=== PATIENT | male | born 1990 | race Caucasian/White ===

== ENCOUNTER 2023-06-08 01:01 | Emergency (ER) | payer SELFPAY ==
[2023-06-08 01:04] VITALS: BP 141/87; PULSE 68; RESP 18; TEMP 36.4; O2SAT 98; BMI 24.7
--- NOTE | 2023-06-08 02:08 | RAD_ITS ---
STUDY: X-RAY CHEST REASON FOR EXAM: Male, 32 years old. Stroke TECHNIQUE: Single AP portable view of the chest. COMPARISON: None. FINDINGS: The lungs are clear and expanded. There is no demonstrated pleural abnormality. Normal size heart. Normal mediastinum and nedra. Normal visualized pulmonary arteries. Normal visualized aortic arch and descending thoracic aorta. Normal visualized thoracic spine. Normal visualized ribs, clavicles, and shoulders. There is no demonstrated abnormality of the visualized soft tissue structures of the upper abdomen. RAD/Chest 1 View (Portable) IMPRESSION: No demonstrated acute cardiopulmonary process. Electronically Signed: Sheila Gonzalez MD at 2:54 EST ,
[2023-06-08 02:11] LABS: Absolute Lymphocyte Count 1.64 X10^3/uL (0.83-4.51); Absolute Neutrophil Count 3.3 X10^3/uL (2.0-7.7); Basophil# 0.04 X10^3/uL; Basophil% 0.7 % (0-1); Eosinophil# 0.19 X10^3/uL; Eosinophils% 3.4 % (0-5); Hematocrit 43.4 % (40-54); Hemoglobin 14.3 g/dL (13.0-16.5); Lymphocyte # 1.64 X10^3/ul (0.83-4.51); Lymphocyte % 29.1 % (19-41); Mean Corp Hgb Conc 32.9 g/dL (32-36); Mean Corpuscular Hgb 27.1 pg (27.0-32.0); Mean Corpuscular Volume 82.2 fL (80-94); Mean Platelet Vol. 9.1 fl (6.2-12.0); Monocyte# 0.44 X10^3/uL; Monocyte% 7.8 % (0-10); NRBC Flagged by Analyzer 0 % (0-5); Neutrophil # 3.31 X10^3/uL (2.7-7.7); Neutrophil % 58.8 % (47-70); Platelet Count 236 K/mm3 (150-450); RBC Distribution Width CV 13.3 % (11.6-14.6); RBC Distribution Width SD 39.6 fl (35.1-43.9); Red Blood Count 5.28 M/mm3 (4.6-6.2); White Blood Count 5.6 K/mm3 (4.4-11.0)
[2023-06-08 02:14] VITALS: BP 123/74; PULSE 62; RESP 17; O2SAT 98
[2023-06-08 02:20] LABS: Partial Thromboplast Time 27.5 Seconds (24.1-36.2)
[2023-06-08 02:24] LABS: Anion Gap 5 (5-15); BUN 11 mg/dL (7-18); BUN/Creat Ratio 11.6 RATIO (10-20); Calcium,Total 8.7 mg/dL (8.5-10.1); Chloride 106 mmol/L (98-107); Creatinine, Serum 0.95 mg/dL (0.70-1.30); EST Glomerular Filtration Rate 97 mL/min (>60); Est Glom Filt Rate - Afr Amer 117 mL/min (>60); Estimated Creatinine Clearance 132.19 ml/min; Glucose 88 mg/dL (74-106); Potassium 3.1 mmol/L (3.5-5.1); Sodium Level 141 mmol/L (136-145)
[2023-06-08 02:26] LABS: International Normalized Ratio 1.3; Prothrombin Time (Protime)PT. 16.1 SECONDS (11.7-14.9)
--- NOTE | 2023-06-08 02:28 | EDS_ITS ---
HPI History of Present Illness Chief Complaint: Dizziness Narrative Narrative: 32-year-old male presenting for evaluation of dizziness. He states it was vertiginous in nature. It started prior to coming. He started to hyperventilate and felt like he was numb around his mouth. He was nauseous. He denies any chest pain but he did state he was very anxious. He is not short of breath. No fevers or chills. Patient states he has a history of heart disease and had a heart attack previously. Patient states that when they did a cardiac catheterization this was ultimately negative. They did not determine what the source of the elevated heart enzymes were however the patient states he was in assisted at that time and had a lot of anxiety. [facility] Medical History Heart attack Inguinal hernia Home Medications NK 06/08/23 [History Last Taken Unknown] Allergy/AdvReac Type Severity Reaction Status Date / Time No Known Allergies Allergy Verified 06/08/23 01:03 Surgical History Hx of cardiac catheterization Social History Smoking Status: Current every day smoker tobacco type: e-cigarettes ROS ROS ED ROS Narrative Vertiginous dizziness Constitutional Constitutional ED: Denies chills, fever(s) or sweats Eyes Eyes: Denies blurry vision or change in vision ENT ENT ED: Denies ear pain or sore throat Cardiovascular Cardiovascular: Reports palpitations; Denies chest pain or racing heartbeat Respiratory/Chest Respiratory/Chest: Denies cough, dyspnea or sputum Gastrointestinal Gastrointestinal: Denies abdominal pain, constipation, diarrhea, nausea or vomiting Genitourinary Genitourinary ED: Denies dysuria, hematuria or urinary frequency Musculoskeletal Musculoskeletal: Denies arthralgias, myalgias or neck pain Integumentary Denies abscess, Abrasions or rash Neurologic Neurologic: Denies headache(s), paresthesias or weakness Psychiatric Psychiatric: Reports anxiety; Denies depression, suicidal ideation or suicidal thoughts Endocrine Endocrinology: Denies polydipsia or polyuria EXAM Physical Exam Const Vital Signs: 06/08/23 01:04 06/08/23 01:11 06/08/23 02:14 Temperature 97.6 F L Temperature Source Temporal Pulse Rate 68 Respiratory Rate 18 Respiratory Effort Normal Non-Labored Respiratory Pattern Normal Blood Pressure 141/87 H Blood Pressure Mean 105 Pulse Ox 98 Oxygen Delivery Method Room Air Room Air 06/08/23 02:14 06/08/23 02:30 06/08/23 03:00 Temperature Temperature Source Pulse Rate 62 60 60 Respiratory Rate 17 15 15 Respiratory Effort Respiratory Pattern Blood Pressure 123/74 H 111/70 Blood Pressure Mean 90 83 Pulse Ox 98 98 97 Oxygen Delivery Method Room Air Room Air Room Air 06/08/23 03:00 Temperature Temperature Source Pulse Rate 60 Respiratory Rate 15 Respiratory Effort Respiratory Pattern Blood Pressure 111/70 Blood Pressure Mean 83 Pulse Ox 97 Oxygen Delivery Method Room Air Positive well nourished General Appearance ED: NAD HEENT Reports moist mucous membranes Eyes PERRL and EOMs intact bilaterally Neck no lymphadenopathy Chest Wall inspection of chest normal Resp normal respiratory effort and clear to auscultation bilaterally Auscultation: Negative for rales, rhonchi or wheezes Cardio regular rate and regular rhythm Extremity normal to inspection Neuro oriented x3 and CN's II-XII intact bilaterally Sensorium / Orientation: alert Motor Exam: strength 5/5 throughout Psych mental status grossly normal Skin no rashes or lesions noted MDM MDM MDM Narrative Medical decision making narrative: Patient presenting with vertiginous dizziness. I am not able to reproduce the dizziness on examination. Patient is describing vertigo. He has no headache or focal neurologic deficits. No visual complaints. Given his history of cardiac disease I did do a cardiac workup including EKG. High-sensitivity troponin we obtained to assess for ischemia. Differential includes anxiety, vertigo, dysrhythmia, ACS, pneumonia, dehydration, electrolyte normalities. Chest x-ray to rule out pneumonia. CBC to assess white blood cell count, hemoglobin, platelets. BMP to assess renal function, electrolytes, glucose. Patient currently symptom-free but I will give him some meclizine. Patient's potassium came back at 3.1 so he was given 40 mill equivalents. CBC and BMP otherwise unremarkable. High-sensitivity troponin is 32. Chest x-ray my interpretation shows no acute process. Radiology interprets this and agrees. EKG normal sinus rhythm with a ventricular to 59 bpm without sign of ischemic change or ectopy. Given the patient's workup is ultimately normal I believe he is stable for discharge. Return precautions were discussed. I do believe his symptoms are most likely from vertigo. He will be given a prescription for meclizine. Impression: 1. Vertigo 2. Palpitation Lab Data Attestation: I reviewed the patient's lab results. Labs: Laboratory Results - last 24 hr 06/08/23 02:00 WBC 5.6 RBC 5.28 Hgb 14.3 Hct 43.4 MCV 82.2 MCH 27.1 MCHC 32.9 RDW Std Deviation 39.6 RDW Coeff of Rita 13.3 Plt Count 236 MPV 9.1 Immature Gran % (Auto) 0.200 Neut % (Auto) 58.8 Lymph % (Auto) 29.1 [place] % (Auto) 7.8 Eos % (Auto) 3.4 Baso % (Auto) 0.7 Absolute Neuts (auto) 3.3 Absolute Lymphs (auto) 1.64 Nucleated RBC % 0 PT 16.1 H INR 1.3 APTT 27.5 Sodium 141 Potassium 3.1 L Chloride 106 Carbon Dioxide 30.0 Anion Gap 5 BUN 11 Creatinine 0.95 Estim Creat Clear Calc 132.19 Est GFR (MDRD) Af Amer 117 Est GFR (MDRD) Non-Af 97 BUN/Creatinine Ratio 11.6 Glucose 88 Calcium 8.7 Troponin I High Sens 32 Radiography Diagnostic Testing: Clinical Impression(s) from Imaging Studies Chest X-Ray 06/08/23 02:08 IMPRESSION: No demonstrated acute cardiopulmonary process. Electronically Signed: Sheila Gonzalez MD at 2:54 EST , Discharge Plan Triage Chief Complaint: Dizziness ED Provider: Martin Mae Dx/Rx/DC Orders Instructions: ED BPV Vertigo, ED Hypokalemia Prescriptions: No Action NK Primary Care Provider: [facility] Doctor,Out of Referrals: [facility] Doctor,Out of [Primary Care Provider] - Disposition Disposition: Home, Self Care
[2023-06-08 02:30] VITALS: PULSE 60; RESP 15; O2SAT 98
[2023-06-08] MEDS: Potassium Chloride Oral Tablet 20 MEQ 40 MEQ PO (02:54)
[2023-06-08] MEDS: Meclizine HCl 25 MG Tablet PO (02:56)
[2023-06-08] MEDS: 0.9% Normal Saline (1000mL) 1,000 ML 50 ML IV (02:58)
[2023-06-08 03:00] VITALS: BP 111/70; PULSE 60; RESP 15; O2SAT 97
[2023-06-08 03:17] LABS: Troponin-I HS 32 pg/mL (3.0-78.0)
[2023-06-08 04:25] VITALS: BP 122/65; PULSE 61; RESP 15; O2SAT 100
== END 2023-06-08 04:30 | disposition home or self-care (01) ==
PROVIDERS: Emergency Provider Student in an Organized Health Care Education/Training Program; Referring Provider Student in an Organized Health Care Education/Training Program; Visit Provider Student in an Organized Health Care Education/Training Program
DX: R42 Dizziness and giddiness (principal); R00.2 Palpitations; F17.290 Nicotine dependence, other tobacco product, uncomplicated; I25.2 Old myocardial infarction
CPT/HCPCS: 71045; 80048; 84484; 85025; 85610; 85730; 93005; 99285; J7030; A4216